=== PATIENT | female | born 2000 | race Caucasian/White ===

== ENCOUNTER 2023-03-23 11:55 | Emergency (ER) | payer OTHER, SELFPAY ==
[2023-03-23 11:57] VITALS: BP 107/78; PULSE 79; RESP 14; TEMP 36.6; O2SAT 100; BMI 29.0
--- NOTE | 2023-03-23 12:22 | ED.RN ---
[facility] called ED to say they would come here to drug test patient.
--- NOTE | 2023-03-23 12:47 | EDS_ITS ---
HPI <ROSANNA Woodall - Last Filed: 03/23/23 20:51> History of Present Illness Chief Complaint: Head Injury Narrative Narrative: Patient presenting after hitting the right side of her forehead on a dumpster when she was standing up trying to put something inside of it while at work earlier this morning. She denies any loss of consciousness, use of blood thinners, seizure-like activity, and vomiting. PFSH <ROSANNA Woodall - Last Filed: 03/23/23 20:51> PFSH Allergy/AdvReac Type Severity Reaction Status Date / Time No Known Allergies Allergy Verified 03/23/23 11:57 Social History Smoking Status: Never smoker ROS <ROSANNA Woodall Last Filed: 03/23/23 20:51> ROS ED Constitutional Constitutional ED: Denies chills or fever(s) Eyes Eyes: Denies blurry vision or change in vision Cardiovascular Cardiovascular: Denies chest pain Respiratory/Chest Respiratory/Chest: Denies cough or dyspnea Gastrointestinal Gastrointestinal: Denies abdominal pain, nausea or vomiting Musculoskeletal Musculoskeletal: Denies arthralgias, back pain, myalgias or neck pain Integumentary Denies abscess, Abrasions or rash Neurologic Neurologic: Reports headache(s); Denies confusion, dizziness or paresthesias Psychiatric Psychiatric: Denies anxiety or depression EXAM <ROSANNA Woodall Last Filed: 03/23/23 20:51> Physical Exam Const Vital Signs: 03/23/23 11:57 03/23/23 13:32 Temperature 98 F Temperature Source Temporal Pulse Rate 79 Respiratory Rate 14 Respiratory Effort Normal Respiratory Depth Normal Respiratory Pattern Normal Blood Pressure 107/78 Blood Pressure Mean 87 Pulse Ox 100 Oxygen Delivery Method Room Air Positive well nourished, well developed and no apparent distress General Appearance ED: well developed HEENT Reports normocephalic and head/scalp atraumatic Mouth ED: Yes moist mucous membranes normal Eyes PERRL and EOMs intact bilaterally Neck full ROM and supple Chest Wall inspection of chest normal Resp normal respiratory effort and clear to auscultation bilaterally Cardio regular rate and regular rhythm GI soft to palpation, non-tender, non-distended and no masses Back/Spine normal ROM and normal to inspection Extremity normal to inspection and full ROM Neuro oriented x3, CN's II-XII intact bilaterally, moves all extremities, no focal motor deficits and no sensory deficits noted Sensorium / Orientation: awake and alert Psych mental status grossly normal and thought process normal Skin no rashes or lesions noted and no wounds <Dr. Gonzalo Carrion, - Last Filed: 03/23/23 21:56> Physical Exam Const Vital Signs: 03/23/23 11:57 03/23/23 13:32 Temperature 98 F Temperature Source Temporal Pulse Rate 79 Respiratory Rate 14 Respiratory Effort Normal Respiratory Depth Normal Respiratory Pattern Normal Blood Pressure 107/78 Blood Pressure Mean 87 Pulse Ox 100 Oxygen Delivery Method Room Air [facility] <ROSANNA Woodall - Last Filed: 03/23/23 20:51> [facility] Narrative Medical decision making narrative: Patient presenting today after hitting the right side of her forehead on a dumpster while at work this morning. She is well-appearing and in no acute distress. She reports that she feels a little bit nauseous but has not had any vomiting. She reports pain to the right side of her forehead. There was no loss of consciousness. I do not feel that she qualifies for head CT according to the [place] head rule. She will be given concussion precautions and discharged home in stable condition, she is comfortable with plan. <Dr. Gonzalo Carrion, - Last Filed: 03/23/23 21:56> [facility] Narrative Medical decision making narrative: Patient presenting today after hitting the right side of her forehead on a dumpster while at work this morning. She is well-appearing and in no acute distress. She reports that she feels a little bit nauseous but has not had any vomiting. She reports pain to the right side of her forehead. There was no loss of consciousness. I do not feel that she qualifies for head CT according to the [place] CT head rule. She will be given concussion precautions and discharged home in stable condition, she is comfortable with plan. This patient was seen with a PA/[employer]AMINER Individually assessed they patient including history and physical. I have reviewed everything on the chart that is available and agree with the documentation provided by the PA/[employer]ROLL EXAMINER including discussion about the assessment, treatment plan, discussion, and return precautions. Agree with above. I do not believe she needs any imaging. She is stable without any focal neurologic deficits or lateralizing signs or symptoms. Has nausea without vomiting. I suspect concussion Discharge Plan Triage Chief Complaint: Head Injury ED Midlevel Provider: Katerina Handley ED Provider: Gonzalo Carrion Dx/Rx/DC Orders Clinical Impression: Head injury Instructions: Concussion Dc Primary Care Provider: Care Physician,No Primary Activity Restrictions/Additional Instructions: Please return for any worsening of your symptoms. Follow-up with your PCP. Disposition Disposition: Home, Self Care Discharge Date/Time: 03/23/23 13:55
== END 2023-03-23 13:55 | disposition home or self-care (01) ==
LOC: ED 13:16
PROVIDERS: Emergency Provider Student in an Organized Health Care Education/Training Program; Visit Provider Student in an Organized Health Care Education/Training Program
DX: S09.90XA Unspecified injury of head, initial encounter (principal); W22.09XA Striking against other stationary object, initial encounter; Y93.89 Activity, other specified; Y99.0 Civilian activity done for income or pay
CPT/HCPCS: 99283